=== PATIENT | female | born 1975 | race Two or more races ===

== ENCOUNTER 2021-05-30 11:45 | Inpatient (IN) | payer OTHER ==
[~2021-05-30] VITALS: Ht 157.5 cm; Wt 53.5 kg
[2021-05-30] MEDS ORDERED: SYNTHROID75 MCG PO (14:22)
[2021-05-30] MEDS ORDERED: BUPROPION PO (14:23)
[2021-06-04] MEDS ORDERED: BUPROPION XL150 MG (07:53)
[2021-06-04] MEDS ORDERED: OPTIMAL D31250 MCG (07:53)
[2021-06-04] MEDS ORDERED: PROFERRIN-FORT1 EACH (07:53)
[2021-06-04] MEDS ORDERED: MEGESTROL ACETA40 MG (07:53)
[2021-06-06] MEDS ORDERED: SIMETHICONE125 M1 PO (06:55)
[2021-06-06] MEDS ORDERED: POLY119PG PO (06:55)
[2021-06-06] MEDS ORDERED: NEURONTIN600 MG PO (06:55)
[2021-06-06] MEDS ORDERED: IBUPROFEN800 MG PO (06:55)
== END 2021-06-06 13:30 | disposition home or self-care (01) | DRG 743 ==
LOC: O/R 06-04 05:52 → OB/GYN 06-04 05:52 → SURH 06-04 09:45 → OB/GYN 06-06 13:30
PROVIDERS: ADMIT Obstetrics & Gynecology; ATTEND Obstetrics & Gynecology
PROC: 0UT70ZZ Resection of Bilateral Fallopian Tubes, Open Approach (ICD-10-PCS; 2021-06-04)
PROC: 0UT90ZZ Resection of Uterus, Open Approach (ICD-10-PCS; principal; 2021-06-04 09:45)
DX: D25.2 Subserosal leiomyoma of uterus (principal); N84.0 Polyp of corpus uteri; Z20.822 Contact with and (suspected) exposure to COVID-19